=== PATIENT | female | born 1980 | race Two or more races ===

== ENCOUNTER 2017-06-15 16:44 | Emergency (ER) | payer OTHER ==
[~2017-06-15] VITALS: Ht 160 cm; Wt 105.2 kg
[2017-06-15 16:47] VITALS: Ht 160 cm; Wt 105.2 kg
[2017-06-15 17:48] LABS: microscopic required? YES; urine erythrocyte 2+ (NEGATIVE)
[2017-06-15 18:05] LABS: BASOPHIL % 0.5 % (0-2); PLATELET COUNT 282 x10^3mcL (130-400)
[2017-06-15 18:14] LABS: CALCIUM 8.8 mg/dL (8.5-10.1); CARBON DIOXIDE 28.1 mmol/L (21-32); CHLORIDE SERUM 103 mmol/L (98-107); CREATININE SERUM 0.8 mg/dL (0.6-1.0); GFR1 > 60 mL/min; GLUCOSE SERUM 87 mg/dL (74-106); POTASSIUM SERUM 3.7 mmol/L (3.5-5.1); RED CELL DISTRIBUTION WIDTH 16.7 % (11.5-14.5); SODIUM SERUM 137 mmol/L (136-145)
[2017-06-15 18:20] LABS: ALBUMIN 3.6 g/dL (3.4-5.0); ALKALINE PHOSPHATASE 60 U/L (46-116); ALT/SGPT 20 U/L (14-59); AST/SGOT 16 U/L (15-37); BILIRUBIN DIRECT 0.07 mg/dL (0.0-0.2); LIPASE 202 IU/L (73-393); TOTAL PROTEIN, SERUM 7.6 g/dL (6.4-8.2)
[2017-06-15 19:23] VITALS: BP 109/66
== END 2017-06-15 19:23 | disposition home or self-care (01) ==
LOC: ED 16:44
PROVIDERS: Emergency Medicine
DX: R10.13 Epigastric pain (principal); R10.31 Right lower quadrant pain; F31.9 Bipolar disorder, unspecified
CPT/HCPCS: 36415